=== PATIENT | male | born 1975 | race Hispanic/Latino ===

== ENCOUNTER 2017-07-06 11:35 | Emergency (ER) | payer SELFPAY ==
[~2017-07-06] VITALS: Ht 177.8 cm; Wt 97.5 kg
[2017-07-06] MEDS ORDERED: NASONEX17 GM (12:09)
[2017-07-06] MEDS ORDERED: XYZAL5 MG PO (12:09)
[2017-07-06] MEDS ORDERED: PROVENTIL HFA6.7 GM IH (12:09)
[2017-07-06] MEDS ORDERED: BROMFED DM COU118 ML PO (12:09)
[2017-07-06 12:15] VITALS: BP 128/78
== END 2017-07-06 12:20 | disposition home or self-care (01) ==
LOC: FSED 11:35
DX: H92.01 Otalgia, right ear (principal); R05 Cough; J00 Acute nasopharyngitis [common cold]; J20.9 Acute bronchitis, unspecified
CPT/HCPCS: 99282

== ENCOUNTER 2018-07-16 18:10 | Emergency (ER) | payer SELFPAY ==
[~2018-07-16] VITALS: Ht 177.8 cm; Wt 102.5 kg
[~2018-07-16 18:10] MED LIST: BROMFED DM COU118 ML PO; NASONEX17 GM; PROVENTIL HFA6.7 GM IH; XYZAL5 MG PO
--- OUTSIDE RECORDS SUMMARY | 2018-07-16 18:13 | XMS REPORT ---
Author Author [facility] Address Unknown Phone Unavailable Care Team Providers Care Therapist Name Role Phone Unavailable Unavailable Problems This patient has no known problems. Allergies, Adverse Reactions, Alerts This patient has no known allergies or adverse reactions. Medications This patient has no known medications. Encounters Start Date/Time End Date/Time Encounter Type Admission Type Attending [facility] Care Department Encounter ID 2016-11-22 00:00:00 2016-11-23 00:00:00 Outpatient [facility] [id number]
[2018-07-16] MEDS ORDERED: MORPHINE SULFATE 2 MG/ML SYR 1ML IV STA (18:32)
[2018-07-16] MEDS ORDERED: ONDANSETRON HCL INJ 2MG/ML 2ML 2 MG/ML VIAL IV STA (18:32)
[2018-07-16] MEDS ORDERED: KETOROLAC TROMETHAMINE 30 MG/ML VIAL IV STA (18:32)
[2018-07-16] MEDS ORDERED: SODIUM CHLORIDE 0.9% 1000ML 1,000 ML IV SCH (18:45)
[2018-07-16] MEDS ORDERED: KETOROLAC TROMETHAMINE 30 MG/ML VIAL IV NR (19:00)
--- NOTE | 2018-07-16 20:18 | Diagnostic Imaging Report ---
EXAMINATION: CT of the abdomen and pelvis with contrast. TECHNIQUE: Spiral CT images of the abdomen and pelvis were performed from the lung bases to the lesser trochanters after the intravenous administration of 100 cc of Isovue 370 and the oral administration of water. Coronal and sagittal reformatted images were obtained. COMPARISON: None. CLINICAL HISTORY:Left abdominal pain for 2 days DISCUSSION: ABDOMEN/PELVIS: LOWER THORAX:Mild bilateral lower lobe dependent atelectasis. Lung bases are otherwise clear. Atherosclerotic calcification of the left main coronary artery. HEPATOBILIARY: No focal hepatic lesions. No intra or extrahepatic biliary ductal dilation. GALLBLADDER: No radio-opaque stones or sludge. No wall thickening. SPLEEN: No splenomegaly. PANCREAS: No focal masses or ductal dilatation. ADRENALS: No adrenal nodules. KIDNEYS/URETERS: No hydronephrosis, stones, or solid mass lesions. PELVIC ORGANS/BLADDER: Bladder is unremarkable. Prostate is unremarkable. Pelvic phleboliths. PERITONEUM/RETROPERITONEUM: No free air or fluid. LYMPH NODES: No intra-abdominal, retroperitoneal, pelvic or inguinal lymphadenopathy. VESSELS: The celiac trunk,superior and inferior mesenteric and bilateral renal arteries are patent The portal, superior mesenteric and splenic veins are patent. GI TRACT: There is an approximately 5-6 cm segment of the proximal sigmoid colon which shows moderate wall thickening, scattered diverticula and mild to moderate surrounding fat stranding. No foci of extraluminal air or well-defined enhancing fluid collections. Rest of the bowel shows no wall thickening, dilation or obstruction. Appendix is well identified and normal in caliber. Stomach is unremarkable. BONES AND SOFT TISSUE: No aggressive lytic lesions. 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 Small fat-containing umbilical hernia. IMPRESSION: 1. Findings consistent with acute uncomplicated diverticulitis of the proximal sigmoid colon. No perforation or abscess formation. 2. Atherosclerotic calcification of the left main coronary artery which is greater than expected for patient's age. Signed by: Dr. Dre White M.D. on 07/16/2018 8:15 PM
[2018-07-16] MEDS ORDERED: LEVOFLOXACIN 500 MG TAB PO ONE (20:30)
[2018-07-16] MEDS ORDERED: METRONIDAZOLE 500MG/NS 100ML 100 ML IV ONE (20:30)
== END 2018-07-16 20:41 | disposition home or self-care (01) ==
LOC: FSED 18:10
DX: R10.32 Left lower quadrant pain (principal); K57.32 Diverticulitis of large intestine without perforation or abscess without bleeding
CPT/HCPCS: 74177; 80053; 81003; 85025; 99284; J2270; J2405

== ENCOUNTER 2019-10-26 16:36 | Inpatient (IN) | payer BC, OTHER ==
[~2019-10-26] VITALS: Ht 177.8 cm; Wt 102.5 kg
[2019-10-26] MEDS ORDERED: SODIUM CHLORIDE 0.9% 1000ML 1,000 ML IV STA (17:41)
[2019-10-26] MEDS ORDERED: ALBUTEROL SULFATE HFA 8GM INHALATION AEROSOL INH PRN ×2 (17:45→19:45)
[2019-10-26] MEDS ORDERED: ACETAMINOPHEN/CODEINE ELIX 120-12 MG/5 ML UDC PO ONE (17:45)
--- NOTE | 2019-10-26 17:55 | Emergency Department Note ---
History of Present Illnes History of Present Illness Chief Complaint: COVID PUI History of Present Illness This is a 44 year old male c/o sob cwp constant cough x 5 days pos family exposure to covid pos pt c/o chills o2 sat 93% rm air lower lung quinn diminished PATIENT IN FROM HOME WITH COMPLAINTS OF COUGH, SHORTNESS OF BREATH, VOMITING, AND CHILLS X 5 DAYS; PATIENT ALERT AND ORIENTED, COUGH NOTED IN TRIAGE, O2 SATS 93% ON ROOM AIR; PATIENT STATES HIS SIGNIFICANT OTHER TESTED COVID + Historian: Patient Arrival Mode: Car Onset (how long ago): day(s) (5) Radiation: Denies non-radiation, Denies back, Denies neck, Denies extremity, Denies abdomen, Denies periumbilical, Denies flank, Denies proximal, Denies distal, Denies other Severity: moderate Onset quality: gradual Duration (how long): day(s) (5) Progression: worsening Context: Denies recent illness, Denies recent surgery, Denies recent immobilization, Denies recent travel, Denies trauma/injury, Denies new medications, Denies hx of DVT/PE, Denies non-compliance w/ medications, Denies other Relieving factors: none Exacerbating factors: none Associated symptoms: Denies denies other symptoms, Denies confusion, Denies chest pain, Denies cough, Denies diaphoresis, Denies fever/chills, Denies headaches, Denies loss of appetite, Denies malaise, Denies nausea/vomiting, Denies rash, Denies seizure, Denies shortness of breath, Denies syncope, Denies weakness, Denies other Treatments prior to arrival: none Past Medical/Family History Physician Review I have reviewed the patient's past medical and family history. Any updates have been documented here. Past Medical History Recent Fever: Yes Clinical Suspicion of Infectio: Yes New/Unexplained Change in Ment: No Past Medical History: None Past Surgical History: None Social History Smoking Cessation: Never Smoker Alcohol Use: Occasional Any Illegal Drug Use: No TB Exposure/Symptoms: No Physically hurt or threatened: No Family History Family history of heart diseas: No Other Last Tetanus: UNKNOWN Any Pre-Existing Lines (PICC,: No Review of Systems Review of Systems Constitutional: Reports chills, Reports fever, Reports other (body aches ) EENTM: Reports no symptoms Cardiovascular: Reports no symptoms Respiratory: Reports cough, Reports pain with cough, Reports dyspnea Gastrointestinal: Reports no symptoms Genitourinary: Reports no symptoms Musculoskeletal: Reports no symptoms Integumentary: Reports no symptoms Neurological: Reports no symptoms Psychological: Reports no symptoms Endocrine: Reports no symptoms Hematological/Lymphatic: Reports no symptoms Physical Exam Related Data Allergies: Coded Allergies: No Known Allergies (Unverified , 07/16/18) Triage Vital Signs Vital Signs Date Time Temp Pulse Resp B/P (MAP) Pulse Ox O2 Delivery O2 Flow Rate FiO2 10/26/19 17:36 97.7 78 20 130/99 93 Room Air Vital signs reviewed: Yes Physical Exam CONSTITUTIONAL Constitutional: Present well-developed, Present well-nourished, Present ill appearing HENT HENT: Present normocephalic, Present atraumatic, Present oropharynx clear/moist, Present nose normal HENT L/R: Present left ext ear normal, Present right ext ear normal EYES Eyes: Reports PERRL, Reports conjunctivae normal NECK Neck: Present ROM normal PULMONARY Pulmonary: Present effort normal, Present other (pleural rub noted - c/o sob ); Absent breath sounds normal (diminished lower lung quinn ) CARDIOVASCULAR Cardiovascular: Present regular rhythm, Present heart sounds normal, Present capillary refill normal, Present normal rate, Present other (chest wall pain ) GASTROINTESTINAL Abdominal: Present soft, Present nontender, Present bowel sounds normal GENITOURINARY Genitourinary: Present exam deferred SKIN Skin: Present warm, Present dry MUSCULOSKELETAL Musculoskeletal: Present ROM normal NEUROLOGICAL Neurological: Present alert, Present oriented x 3, Present no gross motor or sensory deficits PSYCHOLOGICAL Psychological: Present mood/affect normal, Present judgement normal Results Laboratory Laboratory Laboratory Tests Test 10/26/19 17:54 10/26/19 17:53 10/26/19 17:44 Influenza Virus Types A,B Antigen Negative (NEGATIVE) White Blood Count 8.53 x10e3/uL (4.8-10.8) Red Blood Count 4.74 x10e6/uL (4.3-5.7) Hemoglobin 14.8 g/dL (14.0-18.0) Hematocrit 42.9 % (38.2-49.6) Mean Corpuscular Volume 90.5 fL (81-99) Mean Corpuscular Hemoglobin 31.2 pg (28-32) Mean Corpuscular Hemoglobin Concent 34.5 g/dL (31-35) Red Cell Distribution Width 12.0 % (11.7-14.4) Platelet Count 233 x10e3/uL (140-360) Neutrophils (%) (Auto) 73.0 % (38.7-80.0) Lymphocytes (%) (Auto) 20.4 % (18.0-39.1) Monocytes (%) (Auto) 5.9 % (4.4-11.3) Eosinophils (%) (Auto) 0.1 % (0.0-6.0) Basophils (%) (Auto) 0.4 % (0.0-1.0) Neutrophils # (Auto) 6.2 (2.1-6.9) Lymphocytes # (Auto) 1.7 (1.0-3.2) Monocytes # (Auto) 0.5 (0.2-0.8) Eosinophils # (Auto) 0.0 (0.0-0.4) Basophils # (Auto) 0.0 (0.0-0.1) Absolute Immature Granulocyte (auto 0.02 x10e3/uL (0-0.1) Prothrombin Time 13.0 seconds (11.9-14.5) Prothromb Time International Ratio 0.93 Activated Partial Thromboplast Time 29.8 seconds (23.8-35.5) Sodium Level 139 mmol/L (136-145) Potassium Level 3.4 mmol/L (3.5-5.1) Chloride Level 102 mmol/L (98-107) Carbon Dioxide Level 25 mmol/L (22-29) Anion Gap 15.4 mmol/L (8-16) Blood Urea Nitrogen 15 mg/dL (7-26) Creatinine 1.06 mg/dL (0.72-1.25) Estimat Glomerular Filtration Rate > 60 ML/MIN (60-) BUN/Creatinine Ratio 14 (6-25) Glucose Level 92 mg/dL (74-118) Lactic Acid Level 1.1 mmol/L (0.5-2.0) Calcium Level 9.3 mg/dL (8.4-10.2) Total Bilirubin 0.8 mg/dL (0.2-1.2) Aspartate Amino Transf (AST/SGOT) 54 IU/L (5-34) Alanine Aminotransferase (ALT/SGPT) 59 IU/L (0-55) Alkaline Phosphatase 68 IU/L (40-150) Creatine Kinase 246 IU/L (30-200) Creatine Kinase MB 1.10 ng/mL (0-5.0) Troponin I 0.004 ng/mL (0-0.300) B-Type Natriuretic Peptide < 10.0 pg/mL (0-100) Total Protein 8.1 g/dL (6.5-8.1) Albumin 3.5 g/dL (3.5-5.0) Globulin 4.6 g/dL (2.3-3.5) Albumin/Globulin Ratio 0.8 (0.8-2.0) Procedures 12 Lead ECG Interpretation ECG Interpretation : ECG: ECG 1 Date: Oct 26, 2019 Time: 17:54 Prior ECG tracings: reviewed Rhythm: sinus rhythm Rate: normal BPM: 90 QRS axis: right Assessment & Plan Medical Decision Making MDM This is a 44 year old male c/o sob cwp constant cough x 5 days pos family exposure to covid pos pt c/o chills o2 sat 93% rm air lower lung quinn diminished ordered lab ekg cxr pt medicated w/ decadron tylenol w/ codiene zithromax and rocephin d/d covid pos/ viral illness / pne / bronchitis / electrolyte imbalance / mi / acs / chf Reassessment Reassessment discussed plan of care and need for admit spoke w/ Dr Gordon will admit Assessment & Plan Final Impression: (1) Cough (2) Pneumonia (3) Hypoxia Depart Disposition: ADMITTED Last Vital Signs Date Time Temp Pulse Resp B/P (MAP) Pulse Ox O2 Delivery O2 Flow Rate FiO2 10/26/19 17:36 97.7 78 20 130/99 93 Room Air Home Meds Active Scripts Mometasone Furoate (NASONEX) 17 Gm [place], 2 SPRAYS NA DAILY, #1 BOTTLE 0 Refills Prov:DAVIS GARCIA MD 07/06/17 Albuterol Sulfate (PROVENTIL HFA) 6.7 Gm Hfa.aer.ad, 2 SPRAYS IH Q4H PRN for SHORTNESS OF BREATH, #1 INH 0 Refills 2 puffs Q4-6HPRN Prov:DAVIS GARCIA MD 07/06/17 Levocetirizine Dihydrochloride (XYZAL) 5 Mg Tablet, 5 MG PO DAILY, #30 TAB 0 Refills Prov:DAVIS GARCIA MD 07/06/17 D-Methorphan Hb/P-Epd Hcl/Bpm (BROMFED DM COUGH SYRUP) 118 Ml Syrup, 10 ML PO Q4HR PRN for COUGH, #236 ML 0 Refills Prov:DAVIS GARCIA MD 07/06/17 ESDRAS ADAM Oct 26, 2019 17:54
[2019-10-26] MEDS ORDERED: DEXAMETHASONE PHOS 4MG/ML 5ML MULTIDOSE VIAL IV ONE (18:00)
[2019-10-26] MEDS ORDERED: CEFTRIAXONE SOD 1 GM/NS 50 ML 50 ML IV ONE (18:00)
[2019-10-26 18:31] LABS: BASOPHILS % 0.4 % (0.0-1.0); EOSINOPHILS % 0.1 % (0.0-6.0); HEMATOCRIT 42.9 % (38.2-49.6); HEMOGLOBIN 14.8 g/dL (14.0-18.0); LYMPHOCYTES # (AUTO) 1.7 (1.0-3.2); LYMPHOCYTES % 20.4 % (18.0-39.1); MEAN CORPUSCULAR HEMOGLOBIN 31.2 pg (28-32); MEAN CORPUSCULAR HGB CONC 34.5 g/dL (31-35); MEAN CORPUSCULAR VOLUME 90.5 fL (81-99); MONOCYTES # (AUTO) 0.5 (0.2-0.8); MONOCYTES % 5.9 % (4.4-11.3); NEUTROPHILS # (AUTO) 6.2 (2.1-6.9); PLATELET COUNT 233 x10e3/uL (140-360); RED BLOOD COUNT 4.74 x10e6/uL (4.3-5.7)
[2019-10-26 18:41] LABS: INR 0.93
[2019-10-26 18:42] LABS: PARTIAL THROMBOPLASTIN TIME 29.8 seconds (23.8-35.5)
[2019-10-26 18:49] LABS: ALANINE AMINOTRANSFERASE 59 IU/L (0-55); ALBUMIN 3.5 g/dL (3.5-5.0); ALBUMIN/GLOBULIN RATIO 0.8 (0.8-2.0); ALKALINE PHOSPHATASE 68 IU/L (40-150); ANION GAP 15.4 mmol/L (8-16); BLOOD UREA NITROGEN 15 mg/dL (7-26); BUN/CREATININE RATIO 14 (6-25); CALCIUM 9.3 mg/dL (8.4-10.2); CARBON DIOXIDE 25 mmol/L (22-29); CHLORIDE 102 mmol/L (98-107); CREATINE KINASE 246 IU/L (30-200); CREATININE, SERUM 1.06 mg/dL (0.72-1.25); EST GLOMERULAR FILTRATION RATE > 60 ML/MIN (60-); GLUCOSE 92 mg/dL (74-118); POTASSIUM 3.4 mmol/L (3.5-5.1); SODIUM 139 mmol/L (136-145)
[2019-10-26 18:59] LABS: B-TYPE NATRIURETIC PEPTIDE2 < 10.0 pg/mL (0-100)
[2019-10-26] MEDS ORDERED: AZITHROMYCIN 500MG/NS 250 ML 250 ML IV ONE (19:30)
[2019-10-26] MEDS ORDERED: SODIUM CHLORIDE 0.9% 1000ML 1,000 ML IV SCH (19:45)
[2019-10-26] MEDS ORDERED: CEFTRIAXONE SOD 1 GRAM/0.9% SOD CHL 50ML BAG IV SCH (19:45)
[2019-10-26] MEDS ORDERED: AZITHROMYCIN 500MG/SOD CHL 0.9% 250ML BAG IV SCH (19:45)
[2019-10-26] MEDS ORDERED: SODIUM CHLORIDE 0.9% 50ML 50 ML ONE (21:11)
[2019-10-26] MEDS ORDERED: IOPAMIDOL 370 MG/ML 200 ML INFUS..BTL INJ ONE (21:11)
--- NOTE | 2019-10-26 21:31 | Diagnostic Imaging Report ---
EXAMINATION: CHEST SINGLE (PORTABLE) INDICATION: Shortness of breath COMPARISON: None FINDINGS: AP view TUBES and LINES: None. LUNGS: Low lung volumes. Few ill-defined airspace opacities throughout the lungs, notably in the left lower lobe. PLEURA: No pleural effusion or pneumothorax. HEART AND MEDIASTINUM: The cardiomediastinal silhouette is unremarkable. BONES AND SOFT TISSUES: No acute osseous lesion. Soft tissues are unremarkable. UPPER ABDOMEN: No free air under the diaphragm. IMPRESSION: Pulmonary airspace disease consistent with an infectious process. Consider viral pneumonia. Signed by: Miguel Arora MD on 10/26/2019 9:28 PM
--- NOTE | 2019-10-26 21:56 | Diagnostic Imaging Report ---
EXAM: CT Chest WITH contrast 10/26/2019 9:15 PM INDICATION: Shortness of breath COMPARISON: None TECHNIQUE: Chest was scanned utilizing a multidetector helical scanner from the lung apex through the level of the adrenal glands without administration of IV contrast. Coronal and sagittal reformations were obtained. Routine protocol was performed. IV CONTRAST: 100 mL of Omnipaque 300 COMPLICATIONS: None RADIATION DOSE: Total DLP: mGy*cm Estimated effective dose: (DLP x 0.014 x size factor) mSv CTDIvol has been reviewed. It is below the limits set by the Radiation Protocol Committee (RPC). Dose modulation, iterative reconstruction, and/or weight based adjustment of the mA/kV was utilized to reduce the radiation dose to as low as reasonably achievable. FINDINGS: LINES/ TUBES: None. LUNGS AND AIRWAYS: Patchy predominantly groundglass airspace disease throughout both lungs. PLEURA: The pleural spaces are clear. HEART AND MEDIASTINUM: The thyroid gland is normal. Prominent subcentimeter mediastinal lymph nodes, likely reactive. The heart is normal in size. There is no pericardial effusion. Suboptimal evaluation of the pulmonary arteries due to timing of the contrast bolus. No central pulmonary embolus is identified. The distal pulmonary artery branches are suboptimally evaluated. UPPER ABDOMEN: Unremarkable. BONES: The visualized bony thorax is within normal limits. SOFT TISSUES: Unremarkable. IMPRESSION: 1. No proximal pulmonary embolus. The smaller distal pulmonary artery branches are suboptimally evaluated. 2. Patchy airspace disease throughout both lungs suggestive of viral pneumonia. Signed by: Miguel Arora MD on 10/26/2019 9:52 PM
--- NOTE | 2019-10-27 00:03 | NUR ---
Patient reevaluated by me at bedside, states he does not wish to be admitted. Pt re-evaluated, oxygen saturation 96% on room air with no evidence of tachypnea noted. All of patient's lab work reviewed and consistent with covid-19. Pt informed[address] Dr[address] Gordon informed of change in patient's admission status. Spoke to patient at length about proning, d/jo-ann home on z-pack, decadron and return precautions.
[2019-10-27] MEDS ORDERED: IPRATROPIUM BROMIDE INHALER 12.9 GM INH INH SCH (01:00)
[2019-10-27] MEDS ORDERED: CEFTRIAXONE SOD 1 GM/NS 50 ML 50 ML IV SCH (08:00)
[2019-10-27] MEDS ORDERED: AZITHROMYCIN 500MG/NS 250 ML 250 ML IV SCH (08:45)
[2019-10-27] MEDS ORDERED: FAMOTIDINE 20 MG/2 ML VIAL IV SCH (09:00)
[2019-10-27] MEDS ORDERED: ENOXAPARIN SOD INJ 40 MG/0.4 ML SYR SC SCH (17:00)
== END 2019-10-26 23:59 | disposition home or self-care (01) | DRG 177 ==
LOC: ER 18:04 → ERHOLD 19:43
PROVIDERS: ADMIT Internal Medicine; ATTEND Internal Medicine
DX: U07.1 COVID-19 (principal); J12.89 Other viral pneumonia; Z20.828 Contact with and (suspected) exposure to other viral communicable diseases
CPT/HCPCS: 36415; 71045; 71260; 80053; 82550; 82553; 83605; 83880; 84484; 85025; 85610; 85730; 87040; 87400; 87635; 93005; 99284; Q9967

== ENCOUNTER 2020-07-03 11:23 | Emergency (ER) | payer BC ==
[~2020-07-03] VITALS: Ht 177.8 cm; Wt 102.1 kg
== END 2020-07-03 13:11 | disposition home or self-care (01) ==
LOC: FSED 11:35
DX: R23.3 Spontaneous ecchymoses (principal); M25.522 Pain in left elbow
CPT/HCPCS: 80053; 81003; 85025; 85610; 99283

== ENCOUNTER 2024-06-16 15:36 | Emergency (ER) | payer BC ==
[~2024-06-16] VITALS: Ht 177.8 cm; Wt 103.4 kg
[2024-06-16] MEDS: IBUPROFEN 400 MG TAB PO ONE (16:24)
[2024-06-16 17:18] VITALS: PULSE 102; RESP 16; TEMP 102.4; O2SAT 94
[2024-06-16] MEDS: ACETAMINOPHEN 325 MG TAB PO ONE (17:34)
== END 2024-06-16 17:39 | disposition home or self-care (01) ==
LOC: FSED 16:04
DX: R50.9 Fever, unspecified (principal); J10.1 Influenza due to other identified influenza virus with other respiratory manifestations; R05.9 Cough, unspecified; Z11.52 Encounter for screening for COVID-19
CPT/HCPCS: 0223U; 87400; 99283